=== PATIENT | female | born 1990 | race Caucasian/White ===

== ENCOUNTER 2017-01-20 09:31 | Day surgery (SDC) | payer BC, OTHER ==
[2017-01-20] MEDS ORDERED: Iron Sucrose Complex 500 MG in Sodium Chloride 0.9% 250 ML 250 ML IVPB SCH (10:11)
[2017-01-20] MEDS ORDERED: Acetaminophen 500 MG TAB PO PRN (10:11)
[2017-01-20] MEDS ORDERED: ALPRAZolam 0.25 MG TAB PO SCH (10:15)
[2017-01-20 10:18] VITALS: BMI 32.4
[2017-01-20 10:20] VITALS: BP 135/83; TEMP 98.5
[2017-01-20] MEDS ORDERED: Lactated Ringer's 1,000 ML IV SCH (11:30)
[2017-01-20] MEDS ORDERED: Iron Sucrose Complex 200 MG in Sodium Chloride 0.9% 250 ML 250 ML IVPB SCH (11:30)
[2017-01-20] MEDS ORDERED: Sodium Chloride 0.9% 1,000 ML IV SCH (12:30)
== END 2017-01-20 16:48 | disposition home or self-care (01) ==
LOC: L&D/OP 09:31
PROVIDERS: ATTEND Obstetrics & Gynecology
DX: O99.019 Anemia complicating pregnancy, unspecified trimester (principal); D50.9 Iron deficiency anemia, unspecified; O99.340 Other mental disorders complicating pregnancy, unspecified trimester; F41.9 Anxiety disorder, unspecified
CPT/HCPCS: 96360; 96361; J1756; J7050

== ENCOUNTER 2017-01-24 02:59 | Day surgery (SDC) | payer BC, OTHER ==
[2017-01-24 03:23] VITALS: TEMP 97.8; BMI 32.4
[2017-01-24] MEDS ORDERED: Ondansetron ODT 8 MG TAB SL PRN (03:45)
[2017-01-24] MEDS ORDERED: Promethazine HCl 25 MG/ML VIAL IM PRN (03:55)
[2017-01-24] MEDS ORDERED: HYDROcodone/Acetaminophen 5/325 mg Tablet PO SCH (04:00)
[2017-01-24 04:56] LABS: #Basophils 0.1 thou/uL (0.0-0.2); #Eosinphils 0.7 thou/uL (0.0-0.7); #Lymphocytes 1.4 thou/uL (1.20-3.40); #Monocytes 1.2 thou/uL (0.11-0.59); #Neutrophils 14.4 thou/uL (1.40-6.50); %Basophils 0.5 % (0.0-1.0); %Monocytes 6.9 % (0.0-10.0); Hematocrit 28.9 % (36.0-47.0); Mean Platelet Volume 7.6 fL (7.4-10.4); Red Blood Cell (RBC) Count 3.77 mill/uL (4.20-5.40); White Blood Cell (WBC) Count 17.8 thou/uL (4.8-10.8)
[2017-01-24 05:33] LABS: ALT (SGPT) 15 U/L (8-55); AST (SGOT) 17 U/L (5-34); Alkaline Phosphatase 147 U/L (40-150); Anion Gap 16 mmol/L (10-20); BUN (Urea Nitrogen) 5 mg/dL (7.0-18.7); Bilirubin, Total 1.2 mg/dL (0.2-1.2); Calc. Creatinine Clearance 199 mL/min (70-130); Calcium 9.5 mg/dL (7.8-10.44); Carbon Dioxide 21 mmol/L (22-29); Chloride 102 mmol/L (98-107); Estimated GFR-MDRD Greater than 90; Globulin 3.4 g/dL (2.4-3.5); Lipase 9 U/L (8-78); Protein, Total 6.8 g/dL (6.0-8.3)
[2017-01-24 06:05] VITALS: BP 129/75
[2017-01-24] MEDS ORDERED: Prochlorperazine 10 MG/2 ML VIAL IM SCH (07:00)
[2017-01-24] MEDS ORDERED: ALPRAZolam 0.25 MG TAB PO SCH (07:30)
--- NOTE | 2017-01-24 07:59 | ULT ---
PRELIMINARY REPORT/[facility]/EMERGENCY AFTER HOURS PROCEDURE: EXAM: US Abdomen Limited, Right Upper Quadrant EXAM DATE/TIME: Exam ordered 01/24/2017 4:13 AM CLINICAL HISTORY: 26 years old, female; Pain; Abdominal pain; Other: Epigastric to ruq; TECHNIQUE: Real-time ultrasound of the right upper quadrant with image documentation. COMPARISON: No relevant prior studies available. FINDINGS: Liver: Unremarkable. No mass. No intrahepatic bile duct dilation. Gallbladder: Cholelithiasis/gallbladder sludge. Gallbladder is distended. No gallbladder wall thicke chicho or pericholecystic fluid. Sonographic Henriquez's sign negative. Common bile duct: Unremarkable as visualized. No stones. No dilation. Pancreas: Unremarkable as visualized. Right kidney: Moderate right hydronephrosis and proximal right hydroureter. No stones. IMPRESSION: 1. Cholelithiasis/gallbladder sludge. No cholecystitis. 2. Moderate right hydronephrosis and proximal right hydroureter. Consider CT scan to evaluate for ureteral obstruction. Thank you for allowing us to participate in the care of your patient. Dictated and Authenticated by: Efe Keenan MD 01/24/2017 4:48 AM Central Time ([place] \T\ [place]) FINAL INTERPRETATION RIGHT UPPER QUADRANT ULTRASOUND DATE: 01/24/2017 COMPARISON: None. HISTORY: Epigastric pain, right upper quadrant pain, 37 weeks . FINDINGS: There is no focal liver lesion or intrahepatic biliary dilatation appreciated. The common bile priya t measures in the 3-4 mm range, within normal limits. A mild/moderate degree of right-sided hydronephrosis/hydroureter is noted. The loom tuner reports a negative Henriquez's sign. No gallbladder wall thickening or pericholecystic fluid is noted. There is an echogenic focus in the region of the gallbladder neck measuring up to 1.1 cm with no significa nt posterior shadowing. This likely represents an echogenic sludge ball. There are additional area s of sludge seen within the gallbladder lumen. No definite stones are seen. Right kidney measures 10.6 cm in craniocaudal dimension. Pancreas is primarily obscured by bowel ga s. The echogenic focus within the gallbladder lumen could also represent a non-shadowing stone. IMPRESSION: 1. Gallbladder sludge and a sludge ball versus non-shadowing gallstone. No sonographic evidence of cholecystitis. 2. Moderate right-sided hydronephrosis and proximal hydroureter. This could be related to the pregn ant status of the patient. Further imaging recommended as clinically indicated. Code QA. POS: TADEO
--- NOTE | 2017-01-24 09:37 | PRG ---
DATE OF SERVICE: 01/24/2017 PRIMARY OB: Dr. Gal German. CHIEF COMPLAINT: Back pain, nausea, and vomiting. HISTORY OF PRESENT ILLNESS: The patient is a 26-year-old G1, P0 female with an intrauterine at 37 weeks and a day, who has presented to labor and delivery with mid thoracic back pain that has recurred from previous episode and persistent nausea and vomiting since about 11:00. The patient reports that she had [place] for dinner that was brought to her by roommate and then had sudden onset pain in her mid thoracic back region and then subsequent vomiting. She has been unable to keep anything down since then. She reports that the back pain in the past has been treated with Flexeril. She also reports that she does not handle pain or stress very well and has a very sensitive stomach. The patient denies any uterine contractions, any vaginal bleeding or leakage of fluid. She denies diarrhea, fever, denies history of gallbladder problems. PAST MEDICAL HISTORY: The patient has a history of essential hypertension, off medications. PAST SURGICAL HISTORY: Negative. OBSTETRIC HISTORY: This is her first . SOCIAL HISTORY: The patient denies any drug, alcohol or tobacco use during this . She does admit that there are two potential father's for this and plans on paternity testing. ALLERGIES: No known drug allergies. MEDICATIONS: Nothing currently, vitamins. OB LABORATORY DATA: Blood type is O negative, antibody screen is negative. HIV is nonreactive. RPR is nonreactive. Hepatitis B surface antigen was equivocal. She is rubella immune antibodies. She is positive for chlamydia in June or July. Her one hour Glucola was 170. Her 3-hour test 91, 177, 172 and 136 with only one abnormal. She is GBS negative. REVIEW OF SYSTEMS: The patient denies any recent illness, fever, fall, headache , chest pain, shortness of breath. She has had nausea and vomiting since 11: 00. Denies any constipation, diarrhea. Denies any rashes. She has had mid thoracic back pain that seems to be recurrent and denies any uterine contractions, vaginal bleeding, leakage of fluid. PHYSICAL EXAMINATION: VITAL SIGNS: Blood pressures have been in the 120s to one teens over 50s to 80s , heart rate in the 80s, respiratory rate 18, temperature 97.8. GENERAL: She appears to be very uncomfortable and very active and mobile. She is sipping water and will subsequently vomit bilious material. LUNGS: Clear. HEART: Has a regular rhythm and rate. ABDOMEN: She has a paravertebral tenderness to palpation in the mid to lower thoracic region that is reproducible to her chief complaint. Abdomen is gravid and soft. She does have a positive Henriquez's sign. EXTREMITIES: Nontender, nonedematous. CERVIX: Closed, thick and high. heart tracing performed for threatened labor. Baseline noted to be in the 120s or 130s with moderate long-term variability, positive accelerations, no decelerations. She has some irritability noted on the monitor, not all felt by the patient. Right upper quadrant ultrasound was performed and was significant for gallstone/ sludge present in the gallbladder, no evidence of obstruction. Her CMP was within normal limits, normal amylase and lipase. CBC had elevated white count of 17,000, hemoglobin of 8.9, platelets of 200,000 plus. ASSESSMENT AND PLAN: The patient is a 26-year-old G1, P0 female with nausea and vomiting, and mid thoracic musculoskeletal pain with gallstones. It is unclear at this time which is prompting the persistent vomiting. The patient does admit that she has a very weak stomach and believes that she is vomiting, because of the significant pain in her back. We have given her a total of 4 mg IM of Stadol, Zofran and Phenergan over her stay. She is now feeling a lot better. In addition, we also gave her 0.25 of Xanax. She is resting comfortably now and reports that she is somewhat nauseous, but not as significant as before, is not vomiting anymore and her back pain is better controlled. I have notified Dr. German for patient's presence and I have asked her to come see her patient also. The patient does have a very unfavorable cervix for induction, should this be gallstone related pain. Dr. Posadas will be taking over care and revaluate the patient in the near future. PLAN: At this point in time with Dr. German and I is to get the patient under pain control, the nausea and vomiting under control and reevaluate as her vomiting may be more secondary to her anxiety and weak stomach and back pain, then due to the gallbladder, the presence of gallstones and sludge. Again, I will be signing off to Dr. Posadas and Dr. German. [facility] MED[facility] CENTERAnita
--- NOTE | 2017-01-24 10:16 | PDOC.EVN ---
Event Note - Event Note Event Note: S; pt complains of mid thoracic back pain, does not radiate, cannot show me where exactly it hurts. Mild nausea relieved w meds. O; VS WNL, GEN NAD, resting comfortably in bed, no CVAT or fundal tendernes, normal ROM, FHT reactive A/P: Pt w back pain and nausea, labs reviewed and WNL, some question of gal bladder sludge but exam and hx not consistent at this time w acute cholecystitis. Discussed pain may just be TOSHIA and recommend rest at home w warm bath, heating pad, tylenol and flexeril PRN and cont to monitor symptoms.
[2017-01-24] MEDS ORDERED: Lactated Ringer's 1,000 ML IV SCH (12:15)
== END 2017-01-24 10:10 | disposition home or self-care (01) ==
LOC: L&D/OP 02:59
PROVIDERS: ATTEND Obstetrics & Gynecology
DX: O99.89 Other specified diseases and conditions complicating pregnancy, childbirth and the puerperium (principal); R52 Pain, unspecified; R11.2 Nausea with vomiting, unspecified; O10.013 Pre-existing essential hypertension complicating pregnancy, third trimester; Z79.899 Other long term (current) drug therapy; Z3A.37 37 weeks gestation of pregnancy; Z87.891 Personal history of nicotine dependence
CPT/HCPCS: 36415; 76705; 80053; 82150; 83690; 85025; 96360; 96361; 96372; J0595; J2550

== ENCOUNTER 2017-02-07 15:07 | Day surgery (SDC) | payer BC, OTHER ==
[2017-02-07 15:39] VITALS: BMI 32.4
[2017-02-07 15:40] VITALS: BP 135/88; TEMP 99.6
== END 2017-02-07 16:39 | disposition home or self-care (01) ==
LOC: L&D/OP 15:07
PROVIDERS: ATTEND Obstetrics & Gynecology
DX: O10.913 Unspecified pre-existing hypertension complicating pregnancy, third trimester (principal); Z3A.00 Weeks of gestation of pregnancy not specified; Z79.899 Other long term (current) drug therapy; Z87.891 Personal history of nicotine dependence

== ENCOUNTER 2017-02-09 17:12 | Day surgery (SDC) | payer BC, OTHER ==
[2017-02-09 17:42] VITALS: BP 139/97; TEMP 99.1; BMI 32.4
--- NOTE | 2017-02-09 18:39 | PDOC.EVN ---
Event Note - Event Note Event Note: 02/09/17 @ 1831: HPI: Patient seen in L&D Triage B: 26 year old G1 at 39 weeks and 3 days with HX anxiety (HX Xanax requirement) here for BP check. She was here 2 days ago for BP check and was sent home after BPs were OK. No labs done then. States BPs at home were all NORMAL and she gets anxiety at hospital. here for BP check per office suggestion. No HARTMANN, no vision changes, no RUQ pain. No real ctx, no LOF, no VB. PMED HX: anxiety Surg: none OB HX: Had iron infusion this for anemia ROS: negative as per HPI. Physical Exam:: 139/98 (on arrival), repeat BPs 120s/80s. Temp 99.1, pulse 103 NAD Abd gravid and S=D EFW 6# CX (by me): closed/20/-2/intact/midposition MONITOR: Cat 1 NST, few irregular ctx on toco Assessment: Anxiety related mild BP rise vs gestational HTN. Plan: 1. NST reactive 2. CX not favorable 3. Partient states all BPs normal at home 4. Check CBC, CMP and UP/Ucr ratio
[2017-02-09 19:01] LABS: #Basophils 0.1 thou/uL (0.0-0.2); #Eosinphils 0.3 thou/uL (0.0-0.7); #Lymphocytes 1.9 thou/uL (1.20-3.40); %Basophils 0.6 % (0.0-1.0); %Eosinophils 2.5 % (0.0-10.0); %Lymphocytes 18.6 % (21.0-51.0); %Monocytes 9.3 % (0.0-10.0); Hematocrit 36.7 % (36.0-47.0); Mean Platelet Volume 8.2 fL (7.4-10.4); Red Blood Cell (RBC) Count 4.54 mill/uL (4.20-5.40); White Blood Cell (WBC) Count 10.2 thou/uL (4.8-10.8)
[2017-02-09 19:19] LABS: Anisocytosis MODERATE=16-30 cells (100X) (0-5/hpf); Hypochromia SLIGHT = 6-15 cells (100X) (0-5/hpf); Ovalocytes SLIGHT = 2-5 cells (100X) (0-1/hpf); Polychromasia MODERATE = 3-4 cells (100X) (0-2/hpf); Tear Drops SLIGHT = 2-5 cells (100X) (0-1/hpf)
[2017-02-09 19:21] LABS: ALT (SGPT) 16 U/L (8-55); AST (SGOT) 16 U/L (5-34); Alkaline Phosphatase 199 U/L (40-150); Anion Gap 14 mmol/L (10-20); BUN (Urea Nitrogen) Less than 4 mg/dL (7.0-18.7); Bilirubin, Total 1.1 mg/dL (0.2-1.2); Calc. Creatinine Clearance 210 mL/min (70-130); Calcium 9.5 mg/dL (7.8-10.44); Carbon Dioxide 22 mmol/L (22-29); Chloride 106 mmol/L (98-107); Estimated GFR-MDRD Greater than 90; Globulin 3.6 g/dL (2.4-3.5); Protein, Total 7.1 g/dL (6.0-8.3)
--- NOTE | 2017-02-09 19:31 | PDOC.EVN ---
Event Note - Event Note Event Note: 1930: FOLLOW UP: BP 129/82...labs OK...OK for Sunday Follow Up.Category I strip. No evidence labor. UP negative.
== END 2017-02-09 19:38 | disposition home or self-care (01) ==
LOC: L&D/OP 17:12
PROVIDERS: ATTEND Obstetrics & Gynecology
DX: O99.343 Other mental disorders complicating pregnancy, third trimester (principal); O16.3 Unspecified maternal hypertension, third trimester; Z3A.39 39 weeks gestation of pregnancy; Z79.899 Other long term (current) drug therapy; Z87.891 Personal history of nicotine dependence
CPT/HCPCS: 36415; 80053; 82570; 84156; 85025

== ENCOUNTER 2017-02-18 20:00 | Inpatient (IN) | payer BC, OTHER ==
[2017-02-18 21:08] VITALS: BMI 32.4
[2017-02-18] MEDS ORDERED: LR / Pitocin 40 units/1000 ml 1,000 ML IV PRN (21:18)
[2017-02-18] MEDS ORDERED: Ibuprofen 800 MG TAB PO PRN (21:18)
[2017-02-18] MEDS ORDERED: Lidocaine 1% (PF) 30 ML VIAL SC PRN (21:18)
[2017-02-18] MEDS ORDERED: Promethazine HCl 25 MG/ML VIAL IM PRN (21:18)
[2017-02-18] MEDS ORDERED: Acetaminophen/Codeine 30-300mg Tablet PO PRN ×2 (21:18)
[2017-02-18] MEDS ORDERED: Zolpidem Tartrate 5 MG TAB PO PRN (21:18)
[2017-02-18] MEDS ORDERED: Acetaminophen 500 MG TAB PO PRN (21:18)
[2017-02-18] MEDS ORDERED: Ondansetron HCl/PF 4 MG/2 ML Vial IVP PRN (21:18)
[2017-02-18] MEDS ORDERED: LR 500 ML/Oxytocin 10 units 500 ML IV SCH (21:30)
[2017-02-18] MEDS: Lactated Ringer's 1,000 ML IV SCH (22:04)
[2017-02-18] MEDS: Misoprostol 100 MCG TAB VAG SCH (22:05)
[2017-02-18 22:08] LABS: Hematocrit 34.2 % (36.0-47.0); Mean Platelet Volume 9.8 fL (7.4-10.4); Red Blood Cell (RBC) Count 4.23 mill/uL (4.20-5.40); White Blood Cell (WBC) Count 10.8 thou/uL (4.8-10.8)
[2017-02-18 22:32] LABS: ALT (SGPT) 19 U/L (8-55); AST (SGOT) 18 U/L (5-34); Alkaline Phosphatase 186 U/L (40-150); Anion Gap 13 mmol/L (10-20); BUN (Urea Nitrogen) 7 mg/dL (7.0-18.7); Bilirubin, Total 1.1 mg/dL (0.2-1.2); Calc. Creatinine Clearance 206 mL/min (70-130); Calcium 9.6 mg/dL (7.8-10.44); Carbon Dioxide 22 mmol/L (22-29); Chloride 106 mmol/L (98-107); Estimated GFR-MDRD Greater than 90; Globulin 3.3 g/dL (2.4-3.5); Protein, Total 6.7 g/dL (6.0-8.3)
[2017-02-19] MEDS: Misoprostol 100 MCG TAB VAG SCH ×3 (01:17→08:05)
[2017-02-19] MEDS: Lactated Ringer's 1,000 ML IV SCH ×4 (06:03→23:25)
[2017-02-19] MEDS: LR 500 ML/Oxytocin 10 units 500 ML IV SCH (08:05)
--- NOTE | 2017-02-19 08:41 | PDOC.LDHP ---
Labor and Delivery H&P Chief complaint: scheduled induction HPI: Pt is a 26yo G1 @ 40.6 weeks here for cervical ripening and IOL. Current gestational age (weeks): 40 Due date: 02/13/17 Dating criteria: last menstrual period, first trimester ultrasound Grav: 1 Current complications: none Abnormal US findings: No Past Medical History: anxiety Current medications: pre- vitamins Previous surgical history: none Allergies/Adverse Reactions: Allergies Allergy/AdvReac Type Severity Reaction Status Date / Time No Known Allergies Allergy Verified 02/09/17 17:36 Social history: none, other (uncertain paternity) - Physical Exam Vital signs reviewed and normal: yes General: resting FHT: category 1 [place] contractions every: irregular - Vaginal Exam cm dilated: 1 (soft, mid position) Effacement: 50% Station: -2 - OB Labs Blood type: O RH: negative Antibody Screen: negative HIV: negative RPR: negative HEPSAg: positive (equivocal-> PCR neg) 1 hour GCT: positive 3 hour GTT: negative GBS: negative Rubella: non-immune - Assessment L&D Assessment: medically indicated induction - Plan Plan: admit to L&D, informed consent obtained, anesthesia consult for pain management -: A/P: Pt here for schedule IOL at 40.6 week. Pt received 2 doses of cytotec overnight with cervix this AM soft, midposition, discussed continued IOL with pitocin. Hx of HepB equivocal w neg PCR in first trimesterd, reactive HepB today, nursery notified.
--- NOTE | 2017-02-19 12:41 | PDOC.LDPN ---
Labor & Delivery Progress Note - Subjective Subjective: painful contractions - Objective General: breathing through contractions Dilation: 1 Effacement: 50% Station: -2 FHT: category 1 - Assessment (1) 40 weeks gestation of Code(s): Z3A.40 - 40 WEEKS GESTATION OF Current Visit: Yes Status : Acute Plan: other -: A/P: Pt sp cytotec and on pitocin for approx 4hrs, pt with painful ctx still 1cm , discussed Cook Balloon. Pt would like placement after epidural. FHT reassuring. Lab reports 3-5 days for confirmatory testing, discussed defer AROM until active labor and avoid FSE if possible. Nursery aware.
[2017-02-19] MEDS ORDERED: Fentanyl 4 mcg/Marc 0.1% Cadd 100 ML ONE (13:33)
[2017-02-19] MEDS ORDERED: Lactated Ringer's 500 ML IV PRN (14:01)
[2017-02-19] MEDS ORDERED: Ondansetron HCl/PF 4 MG/2 ML Vial IVP PRN (14:01)
[2017-02-19] MEDS ORDERED: Eucerin (Mineral Oil/Petrolatum,White) 30 gm Jar TOP PRN (14:01)
[2017-02-19] MEDS ORDERED: ePHEDrine/0.9% NaCl/PF SYRINGE 50 mg/10 ml SLOW IVP PRN (14:01)
[2017-02-19] MEDS ORDERED: diphenhydrAMINE 50 MG/ML VIAL IVP PRN (14:01)
[2017-02-19] MEDS ORDERED: Acetaminophen 325 MG TAB PO PRN (14:01)
[2017-02-19] MEDS ORDERED: Promethazine HCl 25 MG/ML VIAL IM PRN (14:01)
[2017-02-19] MEDS ORDERED: Naloxone HCl 0.4 mg/ml Vial IVP PRN ×2 (14:01)
[2017-02-19] MEDS ORDERED: Communication Order-Pharmacy FS SCH (14:15)
[2017-02-19] MEDS: Fentanyl 4mcg/Marcaine 0.1% Cassette 100 ML EPIDURAL SCH ×2 (15:25→20:39)
--- NOTE | 2017-02-19 17:12 | PDOC.LDPN ---
Labor & Delivery Progress Note - Subjective Subjective: comfortable - Objective Vital signs reviewed and normal: yes General: NAD, resting Dilation: 1 Effacement: 50% Station: -2 FHT: category 1 [place] contractions every: 2 - Assessment (1) 40 weeks gestation of Code(s): Z3A.40 - 40 WEEKS GESTATION OF Current Visit: Yes Status : Acute Plan: other -: Cook Balloon placed at approx 1530 without difficulty, discussed plan for pitocin to max of 12mu/min while balloon in.
[2017-02-20] MEDS: Fentanyl 4mcg/Marcaine 0.1% Cassette 100 ML EPIDURAL SCH ×3 (01:49→11:23)
[2017-02-20 04:15] LABS: Hep B Surface AG-Rflx Sendout Negative (Negative)
[2017-02-20] MEDS: Misoprostol 100 MCG TAB VAG SCH ×5 (07:13→16:53)
[2017-02-20] MEDS: LR 500 ML/Oxytocin 10 units 500 ML IV SCH ×2 (07:15→08:14)
[2017-02-20] MEDS: Lactated Ringer's 1,000 ML IV SCH (08:14)
--- NOTE | 2017-02-20 08:20 | PDOC.LDPN ---
Labor & Delivery Progress Note - Subjective Subjective: painful contractions, vaginal pressure - Objective Vital signs reviewed and normal: yes General: resting, breathing through contractions Dilation: 8 Effacement: 100% Station: 0 FHT: category 1 [place] contractions every: 2 AROM: clear fluid - Assessment (1) 40 weeks gestation of Code(s): Z3A.40 - 40 WEEKS GESTATION OF Current Visit: Yes Status : Acute (2) Active labor at term Code(s): [id number] - Current Visit: Yes Status: Acute Plan: continue plan of care -: A/P: Pt with SROM approx 0345 this AM, has now transitioned to active labor. FHT reassuring.
[2017-02-20] MEDS ORDERED: Ampicillin 2 GM in Sodium Chloride 0.9% 100 ML IVPB SCH (11:18)
--- NOTE | 2017-02-20 11:22 | PDOC.LDPN ---
Labor & Delivery Progress Note - Objective Abnormal vital signs: T102.3 General: resting - Assessment (1) 40 weeks gestation of Code(s): Z3A.40 - 40 WEEKS GESTATION OF Current Visit: Yes Status : Acute (2) Active labor at term Code(s): [id number] - Current Visit: Yes Status: Acute -: A/P Notified by RN of T102.3, will start Amp and Gent for presumed chorioamnionitis, pt ready to transition to 2nd stage.
[2017-02-20] MEDS ORDERED: Gentamicin Sulfate 120 MG in Premix Bag 1 BAG IVPB SCH (12:00)
[2017-02-20] MEDS: Ampicillin 2 GM, Syringe 5.2 ML in Sterile Water 14.8 ML SLOW IVP SCH ×2 (12:04→20:04)
[2017-02-20] MEDS ORDERED: Methylergonovine 0.2 MG/ML VIAL ONE (14:00)
[2017-02-20] MEDS ORDERED: Misoprostol 200 MCG TAB ONE (14:01)
--- NOTE | 2017-02-20 14:21 | PDOC.OPDEL ---
OB Operative/Delivery Note Delivery Dr/Surgeon: Maxi Pre-Delivery Diagnosis: medically indicated induction (41 weeks) Procedure/Post Delivery Dx: operative vaginal delivery (VAVD see additional scanned notes) Weeks gestation: 41 Anesthesia: epidural - Findings A Sex: female Weight: 9 lb 3 oz - Additional Findings/Plan Placenta delivered: spontaneous Repaired Obstetrical Laceration: 2nd degree Estimated blood loss: 500ml Compilations/Other Findings: tight nuchal cut at perineum PPH-resolved w massage, cytotec and methergine Post delivery plan: routine recovery
[2017-02-20] MEDS ORDERED: Promethazine HCl 25 MG/ML VIAL IM PRN (16:16)
[2017-02-20] MEDS ORDERED: LR / Pitocin 40 units/1000 ml 1,000 ML IV SCH (16:16)
[2017-02-20] MEDS ORDERED: Lanolin Ointment 7 GM TUBE TOP PRN (16:16)
[2017-02-20] MEDS ORDERED: Benzocaine/Menthol 20-0.5% 60 ML CAN TOP PRN (16:16)
[2017-02-20] MEDS ORDERED: diphenhydrAMINE 25 MG CAP PO PRN (16:16)
[2017-02-20] MEDS ORDERED: Preparation H Ointment 28 GM TUBE PR PRN (16:16)
[2017-02-20] MEDS ORDERED: Bisacodyl 10 MG SUPP PR PRN (16:16)
[2017-02-20] MEDS ORDERED: Milk Of Magnesia 30 ML UDCUP PO PRN (16:16)
[2017-02-20] MEDS: Ferrous Sulfate 325 MG TAB PO SCH (16:52)
[2017-02-20] MEDS: Gentamicin Sulfate 80 MG in Premix Bag 1 BAG IVPB SCH (17:43)
[2017-02-20] MEDS: Acetaminophen/Codeine 30-300mg Tablet PO PRN ×2 (19:00→23:18)
[2017-02-20] MEDS ORDERED: Bupivacaine 0.25% HCL 30 ML VIAL ONE (21:18)
[2017-02-20] MEDS: Docusate Calcium (SURFAK) 240 MG CAP PO SCH (21:49)
[2017-02-20] MEDS: Ibuprofen 800 MG TAB PO SCH (21:49)
[2017-02-21] MEDS: Gentamicin Sulfate 80 MG in Premix Bag 1 BAG IVPB SCH ×3 (00:58→17:24)
[2017-02-21] MEDS: Ampicillin 2 GM, Syringe 5.2 ML in Sterile Water 14.8 ML SLOW IVP SCH ×4 (02:09→18:01)
[2017-02-21] MEDS: Acetaminophen/Codeine 30-300mg Tablet PO PRN ×2 (03:10→09:34)
[2017-02-21] MEDS: Ibuprofen 800 MG TAB PO SCH ×3 (06:12→22:55)
[2017-02-21 07:46] LABS: Hematocrit 28.9 % (36.0-47.0); Mean Platelet Volume 9.4 fL (7.4-10.4); Red Blood Cell (RBC) Count 3.48 mill/uL (4.20-5.40); White Blood Cell (WBC) Count 24.6 thou/uL (4.8-10.8)
[2017-02-21] MEDS ORDERED: Sodium Chloride 0.9% 10 ML ONE ×3 (08:43→18:28)
[2017-02-21] MEDS ORDERED: Adacel (T-DAP) 0.5 ML VIAL IM ONE (09:00)
[2017-02-21] MEDS: Docusate Calcium (SURFAK) 240 MG CAP PO SCH ×2 (09:54→22:55)
[2017-02-21] MEDS: Ferrous Sulfate 325 MG TAB PO SCH ×2 (09:55→17:24)
[2017-02-21] MEDS: Prenatal Vitamin 1 TAB PO SCH (09:55)
--- NOTE | 2017-02-21 14:36 | PDOC.PP ---
Post Progress Note Post Day #: 1 Subjective: Doing well, afebrile post . Breast feeding with occ supplement formula for hypoglycemia yesterday. PO intake tolerated: yes Flatus: yes Ambulation: yes Vital Signs (12 hours) Temp Pulse Resp BP 02/21/17 13:39 98.3 F 97 18 02/21/17 12:34 98.3 F 97 18 111/77 02/21/17 08:00 98.3 F 97 18 110/68 02/21/17 05:12 97.5 F L 78 18 115/79 Weight Weight 189 lb - Physical Examination General: NAD Respiratory: non-labored breathing Abdominal: lochia (normal), no distention Fundus firm & at: below umb Extremities: negative homans (B) Skin: no rash Neurological: no gross focal deficits Psychiatric: A&Ox3, normal affect Result Diagrams: 02/21/17 07:04 02/18/17 21:50 Additional Labs: Post Labs Blood Type O NEGATIVE 02/18/17 21:50 Hep Bs Antigen Reactive S/CO (NonReactive) H 02/18/17 21:50 (1) 40 weeks gestation of Code(s): Z3A.40 - 40 WEEKS GESTATION OF Status: Acute (2) Active labor at term Code(s): [id number] - Status: Acute (3) Status post vacuum-assisted vaginal delivery Code(s): Z87.42 - PERSONAL HISTORY OF OTH DISEASES OF THE FEMALE GENITAL TRACT Status: Acute (4) Chorioamnionitis Code(s): O41.1290 - CHORIOAMNIONITIS, UNSP TRIMESTER, NOT APPLICABLE OR UNSP Status: Acute - Assessment/Plan PPD#1 sp VAVD complicated by PPH/atony resolved, anemia and chorioamnionitis. Plan to DC abx later today once 24hrs afebrile. Possible DC home tomorrow.
[2017-02-22] MEDS: Ibuprofen 800 MG TAB PO SCH ×2 (06:57→14:23)
--- NOTE | 2017-02-22 08:43 | PDOC.PP ---
Post Progress Note Post Day #: 2 Subjective: doing well, baby w bili lights, normal lochia, no chills PO intake tolerated: yes Flatus: yes Ambulation: yes Vital Signs (12 hours) Temp Pulse Resp BP 02/22/17 04:00 98.3 F 102 H 18 130/85 02/22/17 00:00 98.2 F 95 18 Weight Weight 189 lb - Physical Examination General: NAD Respiratory: non-labored breathing Abdominal: no distention Fundus firm & at: below umb Extremities: negative homans (B) Skin: no rash Neurological: no gross focal deficits Psychiatric: normal affect Result Diagrams: 02/21/17 07:04 02/18/17 21:50 Additional Labs: Post Labs Blood Type O NEGATIVE 02/18/17 21:50 Hep Bs Antigen Reactive S/CO (NonReactive) H 02/18/17 21:50 (1) 40 weeks gestation of Code(s): Z3A.40 - 40 WEEKS GESTATION OF Status: Acute (2) Active labor at term Code(s): [id number] - Status: Acute (3) Status post vacuum-assisted vaginal delivery Code(s): Z87.42 - PERSONAL HISTORY OF OTH DISEASES OF THE FEMALE GENITAL TRACT Status: Acute (4) Chorioamnionitis Code(s): O41.1290 - CHORIOAMNIONITIS, UNSP TRIMESTER, NOT APPLICABLE OR UNSP Status: Acute - Assessment/Plan A/P: PPD 2 doing well, no concerns, doing well. Poss DC today if baby DCd.
[2017-02-22 09:13] VITALS: BP 116/70; TEMP 98
[2017-02-22] MEDS: Prenatal Vitamin 1 TAB PO SCH (09:38)
[2017-02-22] MEDS: Ferrous Sulfate 325 MG TAB PO SCH (09:38)
[2017-02-22] MEDS: Docusate Calcium (SURFAK) 240 MG CAP PO SCH (09:38)
== END 2017-02-22 16:45 | disposition home or self-care (01) | DRG 774 ==
LOC: L&D 20:38 → 3SW 02-20 16:14
PROVIDERS: ADMIT Obstetrics & Gynecology; ATTEND Obstetrics & Gynecology
PROC: 3E033VJ Introduction of Other Hormone into Peripheral Vein, Percutaneous Approach (ICD-10-PCS; 2017-02-18)
PROC: 3E0P7VZ Introduction of Hormone into Female Reproductive, Via Natural or Artificial Opening (ICD-10-PCS; 2017-02-18)
PROC: 0U7C7ZZ Dilation of Cervix, Via Natural or Artificial Opening (ICD-10-PCS; 2017-02-18)
PROC: 10D07Z6 Extraction of Products of Conception, Vacuum, Via Natural or Artificial Opening (ICD-10-PCS; principal; 2017-02-20)
PROC: 0KQM0ZZ Repair Perineum Muscle, Open Approach (ICD-10-PCS; 2017-02-20)
PROC: 3E0334Z Introduction of Serum, Toxoid and Vaccine into Peripheral Vein, Percutaneous Approach (ICD-10-PCS; 2017-02-20)
DX: O76 Abnormality in fetal heart rate and rhythm complicating labor and delivery (principal); O72.1 Other immediate postpartum hemorrhage; O41.1230 Chorioamnionitis, third trimester, not applicable or unspecified; O26.893 Other specified pregnancy related conditions, third trimester; Z67.41 Type O blood, Rh negative; O75.81 Maternal exhaustion complicating labor and delivery; O69.1XX0 Labor and delivery complicated by cord around neck, with compression, not applicable or unspecified; O70.1 Second degree perineal laceration during delivery; Z37.0 Single live birth; Z3A.40 40 weeks gestation of pregnancy; O90.81 Anemia of the puerperium; D64.9 Anemia, unspecified
CPT/HCPCS: 36415; 80053; 85027; 85461; 86780; 86850; 86900; 86901; 87340; 90384; 96372; A4216; J0290; J0595; J1580; J2001; J2210; J2405; J7120; S0020